=== PATIENT | female | born 1985 | race Caucasian/White ===

== ENCOUNTER 2023-08-04 01:46 | Emergency (ER) | payer SELFPAY ==
[2023-08-04 01:58] VITALS: BP 99/64; PULSE 65; RESP 18; TEMP 98.2; BMI 23.6
[2023-08-04] MEDS ORDERED: IBUPROFEN 400 MG TABLET (FP) PO ONE (03:08)
[2023-08-04] MEDS: IBUPROFEN 400 MG TABLET (FP) PO ONE (03:15)
== END 2023-08-04 03:15 | disposition home or self-care (01) ==
LOC: JER 01:46
DX: N92.0 Excessive and frequent menstruation with regular cycle (principal); N94.6 Dysmenorrhea, unspecified; M54.50 Low back pain, unspecified
CPT/HCPCS: 99283-25